=== PATIENT | male | born 1965 | race Hispanic/Latino ===

== ENCOUNTER 2018-07-17 11:27 | Emergency (ER) | payer OTHER | END 2018-07-17 14:03 | disposition home or self-care (01) | LOC: EDH 11:27 | DX: S39.012A Strain of muscle, fascia and tendon of lower back, initial encounter (principal); X50.9XXA Other and unspecified overexertion or strenuous movements or postures, initial encounter; Y93.89 Activity, other specified; Y92.69 Other specified industrial and construction area as the place of occurrence of the external cause; Y99.8 Other external cause status | CPT/HCPCS: 72100 ==

== ENCOUNTER 2019-05-03 16:17 | Emergency (ER) | payer OTHER ==
[2019-05-03] MEDS ORDERED: SODIUM CHLORIDE 0.9% 1000ML 1,000 ML IV ONE (16:49)
[2019-05-03] MEDS ORDERED: ONDANSETRON HCL 4 MG/2 ML VIAL ONE (16:50)
[2019-05-03 16:51] LABS: BASOPHILS % (AUTO) 0.2 % (0.0-5.0); EOSINOPHILS % (AUTO) 0.4 % (0.0-8.0); HEMATOCRIT 44.6 % (42-54); LYMPHOCYTES % (AUTO) 35.2 % (21.0-51.0); MEAN CORPUSCULAR HEMOGLOBIN 32.5 pg (27.0-33.0); MEAN CORPUSCULAR HGB CONC 34.5 g/dL (32.0-36.0); MEAN CORPUSCULAR VOLUME 94.3 fL (79-99); MONOCYTES % (AUTO) 7.5 % (3.0-13.0); NEUTROPHILS % (AUTO) 56.7 % (40.0-77.0); PLATELET COUNT (AUTO) 233 K/uL (130-400); RED BLOOD CELL COUNT(AUTO) 4.73 MIL/uL (4.50-6.20); RED CELL DISTRIBUTION WIDTH 12.7 % (11.0-15.5); WHITE BLOOD COUNT (AUTO) 7.8 K/uL (4.8-10.8)
[2019-05-03 17:01] LABS: CREATININE 0.9 mg/dL (0.5-1.5); POTASSIUM 3.6 mmol/L (3.5-5.1)
[2019-05-03 17:05] LABS: ALBUMIN 3.6 g/dL (3.5-5.0); BILIRUBIN,DIRECT 0.1 mg/dL (0.0-0.3); BILIRUBIN,TOTAL 0.5 mg/dL (0.2-1.0); TOTAL PROTEIN, SERUM 7.7 g/dL (6.0-8.3)
[2019-05-03 17:52] LABS: APPEARANCE,URINE Cloudy (CLEAR); BILIRUBIN,URINE Negative (NEGATIVE); COLOR,URINE Yellow (YELLOW); GLUCOSE, URINE (UA) Negative (NEGATIVE); KETONES,URINE Negative (NEGATIVE); LEUKOCYTE ESTERASE ,URINE Trace (NEGATIVE); NITRATE,URINE Negative (NEGATIVE); OCCULT BLOOD,URINE Negative (NEGATIVE); PH,URINE 7.5 (5.0-8.0); PROTEIN,URINE Negative (NEGATIVE)
[2019-05-03 18:00] LABS: AMPHET/METH SCREEN,URINE NEGATIVE (NEGATIVE); BARBITURATE SCREEN, URINE NEGATIVE (NEGATIVE); BENZODIAZEPINES SCREEN,URINE NEGATIVE (NEGATIVE); CANNABINOID SCREEN,URINE NEGATIVE (NEGATIVE); COCAINE SCREEN,URINE NEGATIVE (NEGATIVE); OPIATE SCREEN,URINE NEGATIVE (NEGATIVE); PHENCYCLIDINE SCREEN,URINE NEGATIVE (NEGATIVE)
[2019-05-03 18:09] LABS: BACTERIA,URINE Few /HPF (None Seen); RBC,URINE 0-1 /HPF (0-1); SQUAMOUS EPITHELIAL CELL,UR Rare /HPF (0-2); WBC,URINE 0-1 /HPF (0-1)
== END 2019-05-03 18:55 | disposition home or self-care (01) ==
LOC: EDH 16:17
DX: K92.2 Gastrointestinal hemorrhage, unspecified (principal); Z87.891 Personal history of nicotine dependence
CPT/HCPCS: 36415; 80048; 80076; 80305; 81001; 83690; 85025; 96374; 99284; J2405; J7030

== ENCOUNTER 2020-12-01 16:45 | Emergency (ER) | payer OTHER ==
[2020-12-01] MEDS ORDERED: SODIUM CHLORIDE 0.9% 1000ML 1,000 ML IV ONE (17:19)
[2020-12-01 17:31] LABS: BASOPHILS % (AUTO) 0.2 % (0.0-5.0); HEMATOCRIT 46.5 % (42-54); LYMPHOCYTES % (AUTO) 25.9 % (21.0-51.0); MEAN CORPUSCULAR HEMOGLOBIN 31.8 pg (27.0-33.0); MEAN CORPUSCULAR HGB CONC 34.6 g/dL (32.0-36.0); MEAN CORPUSCULAR VOLUME 91.9 fL (79-99); NEUTROPHILS % (AUTO) 67.8 % (40.0-77.0); PLATELET COUNT (AUTO) 265 K/uL (130-400); RED BLOOD CELL COUNT(AUTO) 5.06 MIL/uL (4.50-6.20); RED CELL DISTRIBUTION WIDTH 12.2 % (11.0-15.5); WHITE BLOOD COUNT (AUTO) 8.6 K/uL (4.8-10.8)
[2020-12-01 17:35] LABS: APPEARANCE,URINE Clear (CLEAR); BILIRUBIN,URINE Negative (NEGATIVE); COLOR,URINE Yellow (YELLOW); GLUCOSE, URINE (UA) Negative (NEGATIVE); KETONES,URINE Trace mg/dL (NEGATIVE); LEUKOCYTE ESTERASE ,URINE Negative (NEGATIVE); NITRATE,URINE Negative (NEGATIVE); OCCULT BLOOD,URINE Negative (NEGATIVE); PROTEIN,URINE Negative (NEGATIVE); UROBILINOGEN,URINE 0.2 mg/dL (0.2-1.0)
[2020-12-01 17:48] LABS: CREATININE 1.6 mg/dL (0.5-1.5); INR 0.99 (0.85-1.15); POTASSIUM 3.4 mmol/L (3.5-5.1); PROTHROMBIN TIME 10.8 SEC (9.6-11.6)
[2020-12-01 17:49] LABS: PARTIAL THROMBOPLASTIN TIME 28.5 SEC (26.3-35.5)
[2020-12-01 17:52] LABS: BILIRUBIN,TOTAL 0.6 mg/dL (0.2-1.0); CRP QUANTITATIVE 3.8 mg/L (0.00-9.0); TOTAL PROTEIN, SERUM 8.5 g/dL (6.0-8.3)
== END 2020-12-01 20:26 | disposition home or self-care (01) ==
LOC: EDH 16:45
DX: R00.2 Palpitations (principal); G47.00 Insomnia, unspecified; R20.2 Paresthesia of skin; R07.89 Other chest pain
CPT/HCPCS: 36415; 70450; 71045; 80053; 81003; 82550; 83605; 83690; 84484; 85025; 85610; 85651; 85730; 86140; 93005; 96360; 99285; J7030

== ENCOUNTER 2021-08-12 19:37 | Inpatient (IN) | payer BC, OTHER ==
[~2021-08-12] VITALS: Ht 170.2 cm; Wt 70.3 kg
[2021-08-12 20:41] LABS: BASOPHILS % (AUTO) 0.2 % (0.0-5.0); EOSINOPHILS % (AUTO) 0.1 % (0.0-8.0); HEMATOCRIT 43.8 % (42-54); LYMPHOCYTES % (AUTO) 14.3 % (21.0-51.0); MEAN CORPUSCULAR HEMOGLOBIN 32.4 pg (27.0-33.0); MEAN CORPUSCULAR HGB CONC 34.5 g/dL (32.0-36.0); MONOCYTES % (AUTO) 8.3 % (3.0-13.0); NEUTROPHILS % (AUTO) 76.8 % (40.0-77.0); PLATELET COUNT (AUTO) 252 K/uL (130-400); RED BLOOD CELL COUNT(AUTO) 4.66 MIL/uL (4.50-6.20); RED CELL DISTRIBUTION WIDTH 11.7 % (11.0-15.5); WHITE BLOOD COUNT (AUTO) 16.2 K/uL (4.8-10.8)
[2021-08-12] MEDS: CLINDAMYCIN IVPB 900MG/50ML 50 ML IV SCH (20:42)
[2021-08-12 20:52] LABS: CREATININE 1.2 mg/dL (0.5-1.5); POTASSIUM 3.6 mmol/L (3.5-5.1)
[2021-08-12 20:57] LABS: ALBUMIN 3.5 g/dL (3.5-5.0); BILIRUBIN,TOTAL 0.6 mg/dL (0.2-1.0); TOTAL PROTEIN, SERUM 8.1 g/dL (6.0-8.3)
[2021-08-12] MEDS ORDERED: MORPHINE 4 MG SYG IV ONE (21:30)
[2021-08-12] MEDS ORDERED: ONDANSETRON 4MG INJ IVP ONE (21:30)
[2021-08-12] MEDS ORDERED: IOHEXOL-350 75 ML VIAL IV ONE (21:39)
[2021-08-12 21:42] LABS: APPEARANCE,URINE Clear (CLEAR); BILIRUBIN,URINE Negative (NEGATIVE); COLOR,URINE Yellow (YELLOW); GLUCOSE, URINE (UA) Negative (NEGATIVE); KETONES,URINE Negative (NEGATIVE); LEUKOCYTE ESTERASE ,URINE Negative (NEGATIVE); NITRATE,URINE Negative (NEGATIVE); OCCULT BLOOD,URINE Negative (NEGATIVE); PH,URINE 6.5 (5.0-8.0); PROTEIN,URINE Negative (NEGATIVE)
[2021-08-12] MEDS ORDERED: MORPHINE 2 MG SYG IV PRN (22:30)
[2021-08-12] MEDS ORDERED: MORPHINE 4 MG SYG IV PRN (22:30)
[2021-08-12] MEDS ORDERED: VANCOMYCIN 1G/250ML KIT 250 ML IV ONE (22:30)
[2021-08-12] MEDS ORDERED: ACETAMINOPHEN 325 MG TAB PO PRN (22:30)
[2021-08-12] MEDS ORDERED: VANCOMYCIN PROTOCOL PER PHARMACY IV PRN (22:30)
[2021-08-12] MEDS ORDERED: ONDANSETRON 4MG INJ IV PRN (22:30)
[2021-08-12] MEDS: LACTATED RINGERS 1000ML 1,000 ML IV SCH (23:53)
[2021-08-13] MEDS: CLINDAMYCIN IVPB 900MG/50ML 50 ML IV SCH ×2 (04:48→14:45)
[2021-08-13 05:20] LABS: BASOPHILS % (AUTO) 0.1 % (0.0-5.0); EOSINOPHILS % (AUTO) 0.1 % (0.0-8.0); LYMPHOCYTES % (AUTO) 16.8 % (21.0-51.0); MEAN CORPUSCULAR HEMOGLOBIN 31.7 pg (27.0-33.0); MEAN CORPUSCULAR HGB CONC 33.9 g/dL (32.0-36.0); MEAN CORPUSCULAR VOLUME 93.4 fL (79-99); NEUTROPHILS % (AUTO) 73.6 % (40.0-77.0); PLATELET COUNT (AUTO) 237 K/uL (130-400); RED BLOOD CELL COUNT(AUTO) 4.39 MIL/uL (4.50-6.20); RED CELL DISTRIBUTION WIDTH 11.6 % (11.0-15.5); WHITE BLOOD COUNT (AUTO) 15.1 K/uL (4.8-10.8)
[2021-08-13] MEDS: ZOSYN 3.375GM+NS 50ML 50 ML IV SCH ×3 (05:30→21:44)
[2021-08-13 05:35] LABS: CREATININE 0.8 mg/dL (0.5-1.5); MAGNESIUM 2.1 mg/dL (1.80-2.40); PHOSPHORUS 3.6 mg/dL (2.5-4.9); POTASSIUM 3.7 mmol/L (3.5-5.1)
[2021-08-13 05:38] LABS: INR 1.05 (0.85-1.15); PROTHROMBIN TIME 11.4 SEC (9.6-11.6)
[2021-08-13 05:39] LABS: PARTIAL THROMBOPLASTIN TIME 34.6 SEC (26.3-35.5)
[2021-08-13] MEDS: LACTATED RINGERS 1000ML 1,000 ML IV SCH ×2 (09:21→18:41)
[2021-08-13] MEDS: VANCOMYCIN 1G/250ML KIT 250 ML IV SCH ×2 (09:21→21:45)
[2021-08-13] MEDS: FAMOTIDINE 20MG VIAL IV SCH ×2 (09:21→21:44)
[2021-08-13 12:05] VITALS: BP 129/68
[2021-08-13 15:30] VITALS: BP 101/60
[2021-08-13 19:00] VITALS: BP 105/64
[2021-08-13 20:00] VITALS: BP 105/64
[2021-08-13] MEDS ORDERED: 0.9% NACL 250ML 250 ML ONE (21:37)
[2021-08-13 23:54] VITALS: BP 101/61
[2021-08-14] VITALS (17 sets, daily range): BP systolic 93–119; BP diastolic 58–74
[2021-08-14] MEDS: LACTATED RINGERS 1000ML 1,000 ML IV SCH ×2 (03:44→09:32)
[2021-08-14 04:56] LABS: BASOPHILS % (AUTO) 0.2 % (0.0-5.0); EOSINOPHILS % (AUTO) 0.3 % (0.0-8.0); HEMATOCRIT 42.1 % (42-54); LYMPHOCYTES % (AUTO) 19.7 % (21.0-51.0); MEAN CORPUSCULAR HEMOGLOBIN 31.5 pg (27.0-33.0); MEAN CORPUSCULAR HGB CONC 32.8 g/dL (32.0-36.0); MEAN CORPUSCULAR VOLUME 96.1 fL (79-99); MONOCYTES % (AUTO) 9.2 % (3.0-13.0); NEUTROPHILS % (AUTO) 70.1 % (40.0-77.0); PLATELET COUNT (AUTO) 245 K/uL (130-400); RED BLOOD CELL COUNT(AUTO) 4.38 MIL/uL (4.50-6.20); RED CELL DISTRIBUTION WIDTH 11.6 % (11.0-15.5); WHITE BLOOD COUNT (AUTO) 13.3 K/uL (4.8-10.8)
[2021-08-14 05:22] LABS: ALBUMIN 2.9 g/dL (3.5-5.0); BILIRUBIN,TOTAL 0.8 mg/dL (0.2-1.0); CREATININE 0.8 mg/dL (0.5-1.5); POTASSIUM 4.3 mmol/L (3.5-5.1); TOTAL PROTEIN, SERUM 6.6 g/dL (6.0-8.3); URIC ACID 2.5 mg/dL (2.6-7.2)
[2021-08-14 05:26] LABS: HEMOGLOBIN A1C 5.4 % (4.0-6.0)
[2021-08-14] MEDS: ZOSYN 3.375GM+NS 50ML 50 ML IV SCH ×2 (06:15→14:18)
[2021-08-14] MEDS ORDERED: CEFAZOLIN SODIUM 1 GM VIAL ONE (07:53)
[2021-08-14] MEDS ORDERED: BUPIVACAINE/PF 0.25% 30ML VIAL IJ ONE (07:54)
[2021-08-14] MEDS ORDERED: SUCCINYLCHOLINE CHLORIDE 20 MG/ML 10 ML VIAL ONE (08:29)
[2021-08-14] MEDS ORDERED: LIDOCAINE PF 100MG/5ML (2%) SYRINGE 5ML ONE (08:29)
[2021-08-14] MEDS ORDERED: MIDAZOLAM HCL 1 MG/ML 2ML VIAL ONE (08:29)
[2021-08-14] MEDS ORDERED: PROPOFOL 10 MG/ML 20ML VIAL IV ONE (08:30)
[2021-08-14] MEDS ORDERED: ROCURONIUM 10MG/1ML SYR 10 MG/ML ML ONE (08:30)
[2021-08-14] MEDS ORDERED: FENTANYL CITRATE PF 50 MCG/1 ML 2ML VIAL ONE (08:31)
[2021-08-14] MEDS ORDERED: LIDOCAINE 1%-EPI 1:100,000 20 ML VIAL IJ ONE (09:01)
[2021-08-14] MEDS ORDERED: GLYCOPYRROLATE 1 MG/5 ML SYRINGE ONE (09:12)
[2021-08-14] MEDS ORDERED: NEOSTIGMINE 5MG/5ML SYR IV ONE (09:13)
[2021-08-14] MEDS: VANCOMYCIN 1G/250ML KIT 250 ML IV SCH ×2 (11:25→21:37)
[2021-08-14] MEDS: FAMOTIDINE 20MG VIAL IV SCH ×2 (11:25→21:37)
[2021-08-14] MEDS ORDERED: 0.9% NACL 250ML 250 ML ONE (21:31)
[2021-08-15] VITALS: BP 98/47
[2021-08-15] MEDS: ZOSYN 3.375GM+NS 50ML 50 ML IV SCH ×4 (00:04→20:23)
[2021-08-15] MEDS: LACTATED RINGERS 1000ML 1,000 ML IV SCH ×3 (01:33→20:55)
[2021-08-15 04:00] VITALS: BP 94/52
[2021-08-15] MEDS ORDERED: 0.9% NACL 250ML 250 ML ONE (05:11)
[2021-08-15] MEDS: VANCOMYCIN 1G/250ML KIT 250 ML IV SCH ×3 (05:17→20:55)
[2021-08-15 05:33] LABS: ALBUMIN 2.4 g/dL (3.5-5.0); BILIRUBIN,TOTAL 0.6 mg/dL (0.2-1.0); CREATININE 0.7 mg/dL (0.5-1.5); POTASSIUM 3.7 mmol/L (3.5-5.1); TOTAL PROTEIN, SERUM 6.8 g/dL (6.0-8.3)
[2021-08-15] MEDS: FAMOTIDINE 20MG VIAL IV SCH ×2 (08:51→20:23)
[2021-08-15 09:35] VITALS: BP 102/74
[2021-08-15 12:00] VITALS: BP 128/82
[2021-08-15 18:55] VITALS: BP 119/81
[2021-08-15 20:00] VITALS: BP 118/71
[2021-08-16] VITALS: BP 112/67
[2021-08-16 04:00] VITALS: BP 110/65
[2021-08-16] MEDS: ZOSYN 3.375GM+NS 50ML 50 ML IV SCH ×3 (04:25→20:09)
[2021-08-16] MEDS: VANCOMYCIN 1G/250ML KIT 250 ML IV SCH ×3 (04:25→20:09)
[2021-08-16] MEDS: LACTATED RINGERS 1000ML 1,000 ML IV SCH ×2 (04:27→16:31)
[2021-08-16 05:18] LABS: BASOPHILS % (AUTO) 0.3 % (0.0-5.0); EOSINOPHILS % (AUTO) 1.1 % (0.0-8.0); HEMATOCRIT 39.2 % (42-54); MEAN CORPUSCULAR HEMOGLOBIN 31.8 pg (27.0-33.0); MEAN CORPUSCULAR HGB CONC 34.2 g/dL (32.0-36.0); MEAN CORPUSCULAR VOLUME 93.1 fL (79-99); MONOCYTES % (AUTO) 9.2 % (3.0-13.0); NEUTROPHILS % (AUTO) 61.2 % (40.0-77.0); PLATELET COUNT (AUTO) 288 K/uL (130-400); RED BLOOD CELL COUNT(AUTO) 4.21 MIL/uL (4.50-6.20); RED CELL DISTRIBUTION WIDTH 11.5 % (11.0-15.5)
[2021-08-16 05:42] LABS: ALBUMIN 2.6 g/dL (3.5-5.0); BILIRUBIN,TOTAL 0.4 mg/dL (0.2-1.0); CREATININE 0.7 mg/dL (0.5-1.5); POTASSIUM 3.7 mmol/L (3.5-5.1); TOTAL PROTEIN, SERUM 6.7 g/dL (6.0-8.3)
[2021-08-16 09:08] VITALS: BP 112/71
[2021-08-16] MEDS: FAMOTIDINE 20MG VIAL IV SCH ×2 (09:16→20:09)
[2021-08-16 11:16] VITALS: BP 114/74
[2021-08-16 16:38] VITALS: BP 126/81
[2021-08-16 20:00] VITALS: BP 109/69
[2021-08-16] MEDS ORDERED: KETOROLAC 30MG VIAL (30MG/ML) IM PRN (22:00)
[2021-08-16] MEDS ORDERED: ACETAMINOPHEN WITH CODEINE 1 TAB TAB PO PRN ×2 (22:00)
[2021-08-17] VITALS: BP 92/63
[2021-08-17 04:00] VITALS: BP 89/50
[2021-08-17 04:46] LABS: BASOPHILS % (AUTO) 0.4 % (0.0-5.0); EOSINOPHILS % (AUTO) 1.5 % (0.0-8.0); HEMATOCRIT 39.2 % (42-54); LYMPHOCYTES % (AUTO) 27.3 % (21.0-51.0); MEAN CORPUSCULAR HGB CONC 33.4 g/dL (32.0-36.0); MEAN CORPUSCULAR VOLUME 95.6 fL (79-99); MONOCYTES % (AUTO) 8.9 % (3.0-13.0); NEUTROPHILS % (AUTO) 61.5 % (40.0-77.0); PLATELET COUNT (AUTO) 295 K/uL (130-400); RED CELL DISTRIBUTION WIDTH 11.5 % (11.0-15.5); WHITE BLOOD COUNT (AUTO) 8.4 K/uL (4.8-10.8)
[2021-08-17 05:01] LABS: CREATININE 0.8 mg/dL (0.5-1.5); CRP QUANTITATIVE 42.9 mg/L (0.00-9.0); POTASSIUM 3.7 mmol/L (3.5-5.1)
[2021-08-17 05:55] LABS: ERYTHROCYTE SEDIMENTATION RATE 63 MM/HR (0-20)
[2021-08-17] MEDS ORDERED: SULF1TAB42 PO (07:22)
[2021-08-17 08:00] VITALS: BP 121/80
[2021-08-17] MEDS ORDERED: SULFAMETHOX-TMP DS 800/160 TAB PO SCH (09:00)
[2021-08-17] MEDS: FAMOTIDINE 20MG VIAL IV SCH (10:03)
[2021-08-17 12:00] VITALS: BP 123/73
== END 2021-08-17 13:50 | disposition home or self-care (01) | DRG 872 ==
LOC: EDH 19:37 → EDHIP 19:38 → 3BH 08-13 12:16
PROVIDERS: ADMIT Internal Medicine; ATTEND Internal Medicine
PROC: 0J9L0ZZ Drainage of Right Upper Leg Subcutaneous Tissue and Fascia, Open Approach (ICD-10-PCS; 2021-08-14)
PROC: 0J9H0ZZ Drainage of Left Lower Arm Subcutaneous Tissue and Fascia, Open Approach (ICD-10-PCS; principal; 2021-08-14 09:01)
DX: A41.9 Sepsis, unspecified organism (principal); L02.415 Cutaneous abscess of right lower limb; L02.414 Cutaneous abscess of left upper limb; L03.114 Cellulitis of left upper limb; L03.115 Cellulitis of right lower limb; Z20.822 Contact with and (suspected) exposure to COVID-19
CPT/HCPCS: 36415; 73070; 73701; 76882; 80048; 80053; 80202; 81003; 82550; 83036; 83605; 83735; 84100; 84145; 84484; 84550; 85025; 85610; 85651; 85730; 86140; 86850; 86900; 86901; 87040; 87070; 87076; 87077; 87088; 87186; 87205; 87635; 93005; C9803; G0378; J0330; J0690; J2001; J2250; J2270; J2405; J2543; J2704; J2710; J3010; J3370; J3490; J7050; J7120; Q9967

== ENCOUNTER 2024-01-19 16:31 | Emergency (ER) | payer OTHER ==
[~2024-01-19] VITALS: Ht 172.7 cm; Wt 81.6 kg
[~2024-01-19 16:31] MED LIST: SULF1TAB42 PO
[2024-01-19 17:36] LABS: BASOPHILS # (AUTO) 0.02 K/uL (0.00-0.20); BASOPHILS % (AUTO) 0.3 % (0.0-5.0); EOSINOPHILS # (AUTO) 0.02 K/uL (0.00-0.70); EOSINOPHILS % (AUTO) 0.3 % (0.0-8.0); HEMATOCRIT 45.9 % (42-54); IMMATURE GRANULOCYTE ABSOLUTE 0.02 K/uL (0-1); LYMPHOCYTES # (AUTO) 1.9 K/uL (1.0-4.8); LYMPHOCYTES % (AUTO) 23.7 % (21.0-51.0); MEAN CORPUSCULAR HGB CONC 34.4 g/dL (32.0-36.0); MEAN CORPUSCULAR VOLUME 92.9 fL (79-99); MONOCYTES # (AUTO) 0.6 K/uL (0.1-1.0); MONOCYTES % (AUTO) 7.3 % (3.0-13.0); NEUTROPHILS # (AUTO) 5.4 K/uL (1.8-7.7); NEUTROPHILS % (AUTO) 68.1 % (40.0-77.0); PLATELET COUNT (AUTO) 258 K/uL (130-400); RED BLOOD CELL COUNT(AUTO) 4.94 MIL/uL (4.50-6.20); WHITE BLOOD COUNT (AUTO) 7.9 K/uL (4.8-10.8)
[2024-01-19 17:54] LABS: INR <= 0.93 (0.85-1.15)
[2024-01-19 17:56] LABS: PARTIAL THROMBOPLASTIN TIME 32.2 SEC (26.3-35.5)
[2024-01-19] MEDS: ACETAMINOPHEN 500 MG TABLET PO ONE (18:00)
[2024-01-19 18:05] LABS: CREATININE 0.8 mg/dL (0.5-1.3); POTASSIUM 4.2 mmol/L (3.5-5.1)
[2024-01-19] MEDS ORDERED: BUTA-271 PO (18:12)
[2024-01-19 19:23] VITALS: BP 120/76; PULSE 95; RESP 17; O2SAT 99
== END 2024-01-19 19:24 | disposition home or self-care (01) ==
LOC: EDH 16:31
DX: G44.209 Tension-type headache, unspecified, not intractable (principal)
CPT/HCPCS: 36415; 80048; 85025; 85610; 85730

== ENCOUNTER 2025-02-25 10:09 | Emergency (ER) | payer SELFPAY ==
[~2025-02-25] VITALS: Ht 152.4 cm; Wt 81.6 kg
[~2025-02-25 10:09] MED LIST changes: +BUTA-271 PO
--- NOTE | 2025-02-25 10:23 | ERN ---
General Chief Complaint: Abscess Stated Complaint: ABSCESS TO LT KNEE Time Seen by MD: 10:10 Source: patient History of Present Illness Initial Comments PATIENT IS A 59-YEAR-OLD MALE COMING IN DUE TO KNEE DISCOMFORT. PATIENT STATES THAT HE SAW WHAT HE BELIEVES WAS A BOIL IN HIS LEFT KNEE STATES HE PROCEEDED TO EVERETTE IT AND COMPRESSIVE. HE STATES HE NOTICED THE SWELLING LESS TODAY AFTER HE PERFORMED THAT. NO FEVER OR CHILLS. Allergies: Coded Allergies: No Known Allergies (Unverified Allergy, Unknown, 05/03/19) Home Meds Active Scripts Butalb/Acetaminophen/Caffeine (Esgic 50-325-40 mg Tablet) 50 Mg-325 Mg-40 Mg Tablet, 1 EACH PO AD for HEADACHE, #20 TAB 2 tablets by mouth every 4 hours as needed for headache, maximum 6 tablets in 24 hours. Prov:MODESTO STOUT SELF CONTAINED BEHAVIOR UNIT TEACHER 01/19/24 Sulfamethoxazole/Trimethoprim (Bactrim Ds Tablet) 1 Each Tablet, 1 TAB PO BID for 10 Days, #20 TAB Prov:ALIX BERRY FUEL MANAGEMENT HANDLER 08/17/21 Past Medical History Past Medical History: No Pertinent History Medical History Other: NOSE BLEEDS A CHILD Past Surgical History: Other Surgical History Other: RT HIP ABSCESS REMOVAL ROS Dictation CONSTITUTIONAL: NO CHILLS, NO FEVER, NO WEAKNESS, NO DIAPHORESIS, NO MALAISE. HEAD/FACE: NO SIGNS OF TRAUMA. EENT: NO EYE PAIN, NO BLURRED VISION, NO TEARING, NO DOUBLE VISION, NO EAR PAIN, NO EAR DISCHARGE, NO NOSE PAIN, NO NASAL CONGESTION, NO THROAT PAIN, NO THROAT SWELLING, NO MOUTH PAIN. RESPIRATORY: NO COUGH, NO ORTHOPNEA, NO SOB, NO STRIDOR, NO WHEEZING. CARDIOVASCULAR: NO CHEST PAIN, NO EDEMA, NO PALPITATIONS, NO SYNCOPE. GASTROINTESTINAL/ABDOMINAL: NO ABDOMINAL PAIN, NO CONSTIPATION, NO DIARRHEA, NO NAUSEA, NO VOMITING. GENITOURINARY: NO ABNORMAL DISCHARGE, NO DYSURIA, NO FREQUENT URINATION, NO HEMATURIA. NO COMPLAINTS OF PAIN IN THE GENITALS. MUSCULOSKELETAL: NO BACK PAIN, NO GOUT, NO JOINT PAIN, NO JOINT SWELLING, NO MUSCLE PAIN, NO MUSCLE STIFFNESS, NO NECK PAIN. INTEGUMENTARY: NO CHANGE IN COLOR, NO CHANGE IN HAIR/NAILS, NO DRYNESS, NO LESION, NO LUMPS, NO RASH. NEUROLOGICAL/PSYCH: NO ANXIETY, NOT DEPRESSED, NO EMOTIONAL PROBLEM, NO HEAD ACHE, NO NUMBNESS, NO PRE-EXISTING DEFICIT, NO HISTORY OF SEIZURES, NO TREMORS, NO WEAKNESS. HEMATOLOGIC/LYMPHATIC: NOT ANEMIC, NO HISTORY OF BLOOD CLOTS, NO APPARENT BLEEDING, NO BRUISING, GLANDS NOT SWOLLEN. ALL SYSTEMS NEGATIVE, EXCEPT NOTED. Physical Exam Physical Exam Dictation VITAL SIGNS: REVIEWED. GENERAL APPEARANCE: ALERT, ORIENTED X3, NO ACUTE DISTRESS, OBESE. HEAD AND FACE: NON-TRAUMATIC. EYES: PERRL, PINK CONJUNCTIVAS, EYELID NO TRAUMA, ANTERIOR CHAMBER CLEAR. EARS: PINNAS INTACT AND NO SIGNS OF TRAUMA OR ERYTHEMA. EAR CANALS CLEAR AND NO DISCHARGE. TMS NO ERYTHEMA. NOSE: NO DISCHARGE, NO BLEEDING. OROPHARYNX: MOUTH NORMAL, TEETH NO CARIES, TONGUE PINK. PHARYNX CLEAR, NO ERYTHEMA. TONSILS NO EXUDATES, NO ABSCESSES NOTED. MUCOUS MEMBRANE MOIST. NECK: SUPPLE, NON-TENDER, NO THYROMEGALY, NO MASSES, NO JVD, NO BRUITS. BREAST: DEFERRED. CHEST: NO TENDERNESS, NO CREPITUS, NO PARADOXICAL MOVEMENT, NO RETRACTIONS. LUNGS: CLEAR, WELL-VENTILATED, SYMMETRIC, NO RALES, NO WHEEZING, NO RHONCHI, NO STRIDOR, GOOD BREATH SOUNDS BILATERALLY. HEART: REGULAR RATE, REGULAR RHYTHM, NO MURMUR, NO GALLOPS. VASCULAR: NO PERIPHERAL EDEMA. ABDOMEN: SOFT, POSITIVE BOWEL SOUNDS, NONDISTENDED, NO GUARDING, NONTENDER, NO REBOUND, NO MASSES NO HEPATOMEGALY, NO SPLENOMEGALY, NO MTZ'S SIGN, NO HERNIAS. RECTAL: DEFERRED. GENITAL: DEFERRED. NEUROLOGICAL: NORMAL SPEECH, GROSS MOTOR FUNCTION INTACT, GROSS SENSORY FUNCTION INTACT. MUSCULOSKELETAL: NECK NONTENDER, FULL RANGE OF MOTION, BACK NONTENDER, FULL RANGE OF MOTION. EXTREMITIES: NONTENDER, FULL RANGE OF MOTION. SKIN: COLOR PINK, DRY, NO TURGOR, NO RASH, NO LACERATIONS, LEFT KNEE ABRASIONS/ ERYTHEMA, NO CONTUSIONS. LYMPHATICS: DEFERRED. Results Laboratory and Microbiology Lab and Micro Result Laboratory Tests Test 02/25/25 10:21 02/25/25 10:41 Whole Blood Glucose 122 MG/DL (70-110) H Bedside Glucose Comment Notified Nurse White Blood Count 10.5 K/uL (4.8-10.8) Red Blood Count 4.97 MIL/uL (4.50-6.20) Hemoglobin 15.9 g/dL (14.0-18.0) Hematocrit 47.8 % (42-54) Mean Corpuscular Volume 96.2 fL (79-99) Mean Corpuscular Hemoglobin 32.0 pg (27.0-33.0) Mean Corpuscular Hemoglobin Concent 33.3 g/dL (32.0-36.0) Red Cell Distribution Width 12.3 % (11.0-15.5) Platelet Count 237 K/uL (130-400) Mean Platelet Volume 9.3 fL (7.5-10.5) Immature Granulocyte % (Auto) 0.4 % (0-1) Neutrophils (%) (Auto) 67.2 % (40.0-77.0) Lymphocytes (%) (Auto) 25.0 % (21.0-51.0) Monocytes (%) (Auto) 6.9 % (3.0-13.0) Eosinophils (%) (Auto) 0.2 % (0.0-8.0) Basophils (%) (Auto) 0.3 % (0.0-5.0) Neutrophils # (Auto) 7.1 K/uL (1.8-7.7) Lymphocytes # (Auto) 2.6 K/uL (1.0-4.8) Monocytes # (Auto) 0.7 K/uL (0.1-1.0) Eosinophils # (Auto) 0.02 K/uL (0.00-0.70) Basophils # (Auto) 0.03 K/uL (0.00-0.20) Absolute Immature Granulocyte (auto 0.04 K/uL (0-1) Nucleated Red Blood Cells 0.0 % (0.0-0.19) Sodium Level 140 mmol/L (136-145) Potassium Level 4.0 mmol/L (3.5-5.1) Chloride Level 103 mmol/L (101-111) Carbon Dioxide Level 28 mmol/L (21-32) Blood Urea Nitrogen 15 mg/dL (7-18) Creatinine 0.8 mg/dL (0.5-1.3) Glomerular Filtration Rate Calc 103 mL/min (>90) Random Glucose 117 mg/dL (70-105) H Total Calcium 8.9 mg/dL (8.5-10.1) EKG/XRAY/US/CT/MRI Ultrasound Comment [facility] [address] [place], [place] [id number] IMAGING REPORT Signed PATIENT: JULIET TRINIDAD MR#: [id number] : 01/15/1966 SEX: M AGE: 59 LOCATION: [facility] ORDER 1018 STATUS: REG ER REPORT#: [id number] SERVICE 1014 REASON: LEFT KNEE ABSCESS ORDERING PHYSICIAN: VANI ARCHIBALD MD PROCEDURE: EXT NV LTD - US EXTREMITY NONVASCULAR LMTD Exam Type: US EXTREMITY NONVASCULAR LMTD Clinical Information: LEFT KNEE ABSCESS Comparison: None Findings and impression: No abscess is noted throughout the area of concern. There is evidence of subcutaneous edema. DICTATED BY: ANT GUTIERREZ MD DATE: 02/25/25 1047 ELECTRONICALLY SIGNED BY: ANT GUTIERREZ MD DATE: 02/25/25 1050 MDM MDM: DIFFERENTIAL DIAGNOSIS: LEG CELLULITIS, LEFT LEG ABSCESS, RATIONALE: TESTS CONSIDERED AND ORDERED SECONDARY TO SHARED DECISION MAKING INCLUDE: PREVIOUS OUTSIDE RECORDS REVIEWED: OLD ER VISITS. RISK OF COMPLICATION AND/OR MORBIDITY OR MORTALITY OF PATIENT MANAGEMENT: NONE PATIENT IS A 59-YEAR-OLD MALE COMING IN TO BE EVALUATED FOR KNEE DISCOMFORT. PATIENT STATES THAT HE BELIEVES THAT HE MIGHT HAVE AN ABSCESS THERE ULTRASOUND DID NOT CONFIRM IT WHITE BLOOD CELL COUNT WITHIN NORMAL LIMITS. PATIENT WILL BE DISCHARGED IN STABLE CONDITION WITH A DIAGNOSIS OF CELLULITIS OF THE LEFT KNEE. ED Course Orders Procedure Category Date Status Time Tetanus,Diphtheria PHA 02/25/25 Complete Tox [Adult] (Diphther 10:30 Us Extremity US 02/25/25 Resulted Nonvascular Lmtd 10:14 Cbc With Differential LAB 02/25/25 Complete 10:14 Basic Metabolic Panel LAB 02/25/25 Complete 10:14 Current Medications Medications (Trade) Dose Ordered Sig/Daniel Route PRN Reason Start Time Stop Time Status Last Admin Dose Admin Tetanus/ Diphtheria Toxoids Adsorbed (DiphthERIA-teTANUS TOXOID [ADULT]/ DECAVAC) 0.5 ml ONCE ONCE IM 02/25/25 10:30 02/25/25 10:31 DC Vital Signs Date Time Temp Pulse Resp B/P (MAP) Pulse Ox O2 Delivery O2 Flow Rate FiO2 02/25/25 10:10 97.9 103 16 133/87 98 Room Air 0 DX & DISP Disposition: Discharge Departure Impression: Primary Impression: Cellulitis of left leg Condition: Stable Scripts Cephalexin Monohydrate (Keflex) 500 Mg Cap 1 CAP PO TID for 10 Days, #30 CAP 0 Refills Prov: VANI ARCHIBALD MD 02/25/25 Additional Instructions: FOLLOW-UP WITH PRIMARY CARE PROVIDER IN 1 TO 2 DAYS. TAKE MEDICATIONS DIRECTED HERE IN THE EMERGENCY ROOM. OKAY TO CONTINUE HOME MEDICATIONS UNLESS OTHERWISE DISCUSSED DURING YOUR VISIT IN THE EMERGENCY ROOM TODAY. RETURN TO YOUR NEAREST EMERGENCY ROOM IF SYMPTOMS WORSEN OR IF THERE IS NO IMPROVEMENT. CALL 911 IF YOU NEED IMMEDIATE ASSISTANCE. TAKE TYLENOL [id number] NEEDED AND IF NO CONTRAINDICATIONS ARE PRESENT. INCREASE ORAL HYDRATION. A WOUND CULTURE OR URINE CULTURE WAS ORDERED HERE IN THE EMERGENCY ROOM DEPARTMENT PLEASE FOLLOW-UP WITH PRIMARY CARE PROVIDER AND ADVISE THEM TO GET REPEAT PORTS FROM OUR FACILITY. IF YOU HAD ANY DEREJE WRAP/SPLINTS THAT WERE APPLIED HERE, PLEASE DO NOT REMOVE THEM UNTIL YOU SEE YOUR PRIMARY CARE OR SPECIALTY. REFERRALS: Referrals: ADAN CARMEN MD (PCP) Time of Disposition: 11:00 VANI ARCHIBALD MD February 25, 2025 10:23
[2025-02-25 10:49] LABS: BASOPHILS # (AUTO) 0.03 K/uL (0.00-0.20); BASOPHILS % (AUTO) 0.3 % (0.0-5.0); EOSINOPHILS # (AUTO) 0.02 K/uL (0.00-0.70); EOSINOPHILS % (AUTO) 0.2 % (0.0-8.0); HEMATOCRIT 47.8 % (42-54); IMMATURE GRANULOCYTE ABSOLUTE 0.04 K/uL (0-1); LYMPHOCYTES # (AUTO) 2.6 K/uL (1.0-4.8); MEAN CORPUSCULAR HGB CONC 33.3 g/dL (32.0-36.0); MEAN CORPUSCULAR VOLUME 96.2 fL (79-99); MONOCYTES # (AUTO) 0.7 K/uL (0.1-1.0); MONOCYTES % (AUTO) 6.9 % (3.0-13.0); NEUTROPHILS # (AUTO) 7.1 K/uL (1.8-7.7); NEUTROPHILS % (AUTO) 67.2 % (40.0-77.0); PLATELET COUNT (AUTO) 237 K/uL (130-400); RED BLOOD CELL COUNT(AUTO) 4.97 MIL/uL (4.50-6.20); RED CELL DISTRIBUTION WIDTH 12.3 % (11.0-15.5); WHITE BLOOD COUNT (AUTO) 10.5 K/uL (4.8-10.8)
--- NOTE | 2025-02-25 10:50 | HMCIMG ---
Exam Type: US EXTREMITY NONVASCULAR LMTD Clinical Information: LEFT KNEE ABSCESS Comparison: None Findings and impression: No abscess is noted throughout the area of concern. There is evidence of subcutaneous edema.
[2025-02-25 10:56] LABS: CREATININE 0.8 mg/dL (0.5-1.3)
[2025-02-25] MEDS ORDERED: CEPH500B PO (11:00)
[2025-02-25] MEDS: teTANUS/diphthERIA TOXOID [ADULT] 0.5 ML VIAL IM ONE (11:07)
[2025-02-25 11:15] VITALS: BP 136/82; PULSE 101; RESP 18; TEMP 97.9; O2SAT 97
== END 2025-02-25 11:22 | disposition home or self-care (01) ==
LOC: EDH 10:09
DX: S80.212A Abrasion, left knee, initial encounter (principal); L03.116 Cellulitis of left lower limb; Z79.899 Other long term (current) drug therapy; X58.XXXA Exposure to other specified factors, initial encounter; Y93.89 Activity, other specified; Y92.89 Other specified places as the place of occurrence of the external cause; Y99.8 Other external cause status
CPT/HCPCS: 36415; 76882; 80048; 82948; 85025; 90471; 90714; 99285

== ENCOUNTER 2025-03-07 12:55 | Emergency (ER) | payer SELFPAY ==
[~2025-03-07] VITALS: Ht 172.7 cm; Wt 81.6 kg
[~2025-03-07 12:55] MED LIST changes: +CEPH500B PO
[2025-03-07] MEDS: LIDOCAINE HCL 2% VISCOUS 15 ML UDCUP PO ONE (13:22)
[2025-03-07] MEDS: DICYCLOMINE HCL 10 MG/5 ML ML PO ONE (13:22)
[2025-03-07] MEDS: MAG/ALUM/SIMETH 30 ML UDCUP PO ONE (13:22)
[2025-03-07] MEDS ORDERED: OMEP1CAP32 PO (14:49)
[2025-03-07] MEDS ORDERED: CHLO10TA19 PO (14:49)
--- NOTE | 2025-03-07 14:50 | ERN ---
General Chief Complaint: Other Problems Stated Complaint: HICCUPS AND HEARTBURN Time Seen by MD: 13:07 Source: patient History of Present Illness Initial Comments Patient was recently seen in an emergency room with a left knee abscess. He was given a prescription for Keflex. The minute he started taking the Keflex he has had intractable hiccups and heartburn. He said he has not been able to sleep for two days in his only been able to eat a little bit of food. He has no knee pain no fevers or chills. Timing/Duration: 24 hours Allergies: Coded Allergies: No Known Allergies (Unverified Allergy, Unknown, 05/03/19) Home Meds Active Scripts Cephalexin Monohydrate (Keflex) 500 Mg Cap, 1 CAP PO TID for 10 Days, #30 CAP 0 Refills Prov:VANI ARCHIBALD MD 02/25/25 Butalb/Acetaminophen/Caffeine (Esgic 50-325-40 mg Tablet) 50 Mg-325 Mg-40 Mg Tablet, 1 EACH PO AD for HEADACHE, #20 TAB 2 tablets by mouth every 4 hours as needed for headache, maximum 6 tablets in 24 hours. Prov:MODESTO STOUT NP 01/19/24 Sulfamethoxazole/Trimethoprim (Bactrim Ds Tablet) 1 Each Tablet, 1 TAB PO BID for 10 Days, #20 TAB Prov:ALIX BERRYP 08/17/21 Past Medical History Past Medical History: No Pertinent History Medical History Other: NOSE BLEEDS A CHILD Past Surgical History: Other Surgical History Other: RT HIP BOIL ROS Dictation Patient's review of systems is negative except for the hiccups in the heartburn. Physical Exam Extremities Comment Patient's left knee abscess has 100% healed. There is no erythema no warmth no swelling. There is new skin covering the area. MDM The patient's left knee abscesses healed. He does not need to take the antibiotics anymore. I told him to stop. I gave him a GI cocktail to quench his symptoms and it did stop his hiccups and his heartburn. Unfortunately both returned fairly quickly. I will discharge him on antacids and then also chlorpromazine. ED Course Orders Procedure Category Date Status Time Lidocaine Hcl 2% PHA 03/07/25 Complete Viscous (Lidocaine Hcl 13:30 Mag/Alum/Simeth 30ml PHA 03/07/25 Complete (Maalox Plus 30ml) 13:30 Dicyclomine Hcl PHA 03/07/25 Complete (Bentyl 10mg/5ml 13:30 Current Medications Medications (Trade) Dose Ordered Sig/Daniel Route PRN Reason Start Time Stop Time Status Last Admin Dose Admin Al Hydroxide/Mg Hydroxide (MAALox PLUS 30ML) 30 ml ONCE ONCE PO 03/07/25 13:30 03/07/25 13:31 DC 03/07/25 13:22 Dicyclomine HCl (Bentyl 10mg/5ml Syrup) 10 mg ONCE ONCE PO 03/07/25 13:30 03/07/25 13:31 DC 03/07/25 13:22 Lidocaine HCl (Lidocaine HCl 2% Viscous) 10 ml ONCE ONCE PO 03/07/25 13:30 03/07/25 13:31 DC 03/07/25 13:22 Vital Signs Date Time Temp Pulse Resp B/P (MAP) Pulse Ox O2 Delivery O2 Flow Rate FiO2 03/07/25 13:10 98.6 85 18 113/68 99 Room Air* 0 21 03/07/25 12:58 98.6 85 18 113/68 99 0 DX & DISP Disposition: Discharge Departure Impression: Primary Impression: Intractable hiccups Additional Impression: GERD (gastroesophageal reflux disease) Condition: Stable Scripts Omeprazole/Sodium Bicarbonate (Omeprazole-Bicarb 20-1,100 Cap) 20 Mg-1.1 Gram Capsule 1 CAP PO DAILY for 30 Days, #30 CAP 0 Refills Prov: JUANCARLOS MENDOZA MD 03/07/25 Chlorpromazine HCl (Chlorpromazine HCl) 10 Mg Tablet 1 TAB PO TID PRN for hiccups for 30 Days, #90 TAB 0 Refills Prov: JUANCARLOS MENDOZA MD 03/07/25 Additional Instructions: I am sending her home on a strong medicine for GERD or acid reflux. This may help with her hiccups. In addition I am giving you chlorpromazine as well to help with your hiccups. You can try breathing into a paper bag or holding your breath sipping cold water or gargling with ice water in addition to taking these medications. Please follow-up with your primary care physician. It will take a few days for the omeprazole, which is the acid reflux medicine, to work Referrals: ADAN CARMEN MD (PCP) JUANCARLOS MENDOZA MD March 07, 2025 14:50
[2025-03-07 15:00] VITALS: BP 119/62; PULSE 80; RESP 18; TEMP 98.6; O2SAT 99
== END 2025-03-07 15:02 | disposition home or self-care (01) ==
LOC: EDH 12:55
DX: R06.6 Hiccough (principal); K21.9 Gastro-esophageal reflux disease without esophagitis; Z79.899 Other long term (current) drug therapy
CPT/HCPCS: 99284

== ENCOUNTER 2025-03-07 21:24 | Emergency (ER) | payer SELFPAY ==
[~2025-03-07] VITALS: Ht 172.7 cm; Wt 81.6 kg
[~2025-03-07 21:24] MED LIST changes: +CHLO10TA19 PO; +OMEP1CAP32 PO
[2025-03-07 21:57] LABS: BASOPHILS # (AUTO) 0.05 K/uL (0.00-0.20); BASOPHILS % (AUTO) 0.3 % (0.0-5.0); EOSINOPHILS # (AUTO) 0.18 K/uL (0.00-0.70); EOSINOPHILS % (AUTO) 1.1 % (0.0-8.0); HEMATOCRIT 43.7 % (42-54); IMMATURE GRANULOCYTE ABSOLUTE 0.06 K/uL (0-1); LYMPHOCYTES # (AUTO) 2.9 K/uL (1.0-4.8); LYMPHOCYTES % (AUTO) 17.8 % (21.0-51.0); MEAN CORPUSCULAR HEMOGLOBIN 31.8 pg (27.0-33.0); MEAN CORPUSCULAR HGB CONC 34.3 g/dL (32.0-36.0); MEAN CORPUSCULAR VOLUME 92.8 fL (79-99); MONOCYTES # (AUTO) 1.2 K/uL (0.1-1.0); MONOCYTES % (AUTO) 7.3 % (3.0-13.0); NEUTROPHILS # (AUTO) 11.9 K/uL (1.8-7.7); NEUTROPHILS % (AUTO) 73.1 % (40.0-77.0); PLATELET COUNT (AUTO) 306 K/uL (130-400); RED BLOOD CELL COUNT(AUTO) 4.71 MIL/uL (4.50-6.20); RED CELL DISTRIBUTION WIDTH 11.9 % (11.0-15.5); WHITE BLOOD COUNT (AUTO) 16.3 K/uL (4.8-10.8)
[2025-03-07 22:08] LABS: CREATININE 0.7 mg/dL (0.5-1.3); POTASSIUM 4.1 mmol/L (3.5-5.1)
[2025-03-07 22:17] LABS: ALBUMIN 3.6 g/dL (3.5-5.0); BILIRUBIN,DIRECT 0.2 mg/dL (0.0-0.3); BILIRUBIN,TOTAL 1.1 mg/dL (0.2-1.0); TOTAL PROTEIN, SERUM 8.3 g/dL (6.0-8.3)
[2025-03-07] MEDS: PANTOPrazole 40 MG/VIAL IVP ONE (22:20)
--- NOTE | 2025-03-07 22:52 | HMCIMG ---
CHEST 1VW HISTORY: Chest pain COMPARISON: 12/01/1999 FINDINGS: A frontal projection of the chest was obtained. No acute pulmonary infiltrates is seen. The heart is normal in size. Prominent interstitial markings are seen. Degenerative changes are seen. IMPRESSION: 1. No acute pulmonary infiltrate is seen.
[2025-03-07 23:34] LABS: APPEARANCE,URINE CLEAR (CLEAR); BILIRUBIN,URINE NEGATIVE (NEGATIVE); COLOR,URINE LIGHT-YELLOW (YELLOW); GLUCOSE, URINE (UA) NEGATIVE (NEGATIVE); KETONES,URINE 40 mg/dL (NEGATIVE); LEUKOCYTE ESTERASE ,URINE NEGATIVE Leu/uL (NEGATIVE); NITRATE,URINE NEGATIVE (NEGATIVE); OCCULT BLOOD,URINE NEGATIVE (NEGATIVE); PROTEIN,URINE NEGATIVE (NEGATIVE); UROBILINOGEN,URINE 0.2 mg/dL (0.2-1.0)
[2025-03-07 23:36] LABS: ADD UA MICROSCOPIC YES
--- NOTE | 2025-03-07 23:39 | ERN ---
ED Note History of Present Illness Stated Complaint: HICCUPS 3 DAYS Chief Complaint: Hiccups/Singultis Time Seen by MD: 21:27 Time Seen by Midlevel: 21:27 Dictation: The patient is a 59-year-old male with no medical history who presents to the emergency department with complaints of hiccups onset four days ago. Patient reports his symptoms started after taking Keflex for a cellulitis of his left lower extremities. Patient denies any nausea, vomiting, diarrhea or constipation. Denies any fevers. Allergies: Coded Allergies: No Known Allergies (Unverified Allergy, Unknown, 05/03/19) Home Meds Active Scripts Omeprazole/Sodium Bicarbonate (Omeprazole-Bicarb 20-1,100 Cap) 20 Mg-1.1 Gram Capsule, 1 CAP PO DAILY for 30 Days, #30 CAP 0 Refills Prov:JUANCARLOS MENDOZA MD 03/07/25 Chlorpromazine HCl (Chlorpromazine HCl) 10 Mg Tablet, 1 TAB PO TID PRN for hiccups for 30 Days, #90 TAB 0 Refills Prov:JUANCARLOS MENDOZA MD 03/07/25 Cephalexin Monohydrate (Keflex) 500 Mg Cap, 1 CAP PO TID for 10 Days, #30 CAP 0 Refills Prov:VANI ARCHIBALD MD 02/25/25 Butalb/Acetaminophen/Caffeine (Esgic 50-325-40 mg Tablet) 50 Mg-325 Mg-40 Mg Tablet, 1 EACH PO AD for HEADACHE, #20 TAB 2 tablets by mouth every 4 hours as needed for headache, maximum 6 tablets in 24 hours. Prov:MODESTO STOUT HEATING SYSTEMS INSTALLER 01/19/24 Sulfamethoxazole/Trimethoprim (Bactrim Ds Tablet) 1 Each Tablet, 1 TAB PO BID for 10 Days, #20 TAB Prov:ALIX BERRYP 08/17/21 Past Medical History Past Medical History: No Pertinent History Additional Past Medical Hx: NOSE BLEEDS A CHILD Surgical History: Other Surgical History Other: RT HIP BOIL RN Note Reviewed/Agreed w/PFSH: Yes Review of System Dictation Constitutional: Negative for fever,chills, and weight loss Eyes: Negative for injury, pain,redness, and discharge ENT: Negative for injury,pain or swelling Cardiovascular: Negative for chest pain, palpitations, and edema Respiratory: Negative for shortness of breath, cough, and wheezing, Abdomen/GI: Negative for abdominal pain, nausea, vomiting, diarrhea, and constipation positive for hiccups Back: Negative for injury and pain : Negative for injury, bleeding and discharge MS/Extremity: Negative for injury and deformity Skin: Negative for rash, and discoloration Neuro: Negative for headache, weakness, numbness, tingling, and seizure Psych: Negative for suicide ideation, homicidal ideation, and hallucinations Initial Vital Sign VS Vital Signs Date Time Temp Pulse Resp B/P (MAP) Pulse Ox O2 Delivery O2 Flow Rate FiO2 03/07/25 21:25 98.6 92 18 129/79 99 Room Air 03/07/25 22:34 0 21 Physical Exam Dictation Vital Signs reviewed General Appearance: Alert, oriented x 3, no acute distress, well developed, nourished. Head and Face: non-traumatic. Eyes: PERRL, pink conjunctivas, eyelid no trauma, anterior chamber with arcus senilis. Ears: Pinnas intact and no signs of trauma or erythema ear canals clear and no discharge TM no erythema Nose: No discharge, no bleeding. Oropharynx: Mouth normal, tongue pink. pharynx clear,no erythema, tonsils no exudates, no abscesses noted, mucous membrane moist Neck: Supple, non-tender, no thyromegaly, no masses, no JVD, no bruits Breast:Deferred Chest:No tenderness, no crepitus, no paradoxical movement, no retractions Lungs:Clear, well-ventilated, symmetric, no rales, no wheezing, no rhonchi, no stridor, good breath sounds bilaterally Heart: Regular rate, regular rhythm, no murmur, no gallops Vascular: no peripheral edema, Abdomen: Soft, positive bowel sounds, nondistended, no guarding, nontender, no rebound, no masses no hepatomegaly, no splenomegaly, no Cabral's sign, no hernias. Rectal: Deferred Genital: Deferred Neurological: Normal speech, motor function intact, sensory function intact Musculoskeletal: Neck nontender, full range of motion, back nontender, full range of motion, Extremities: nontender, full range of motion Skin: Color pink, dry, no turgor, no rash, no lacerations, no abrasions, no contusions. Lymphatic: Deferred Results (Laboratory/Radiology) Laboratory/Radiology Laboratory Tests Test 03/07/25 21:44 03/07/25 23:21 White Blood Count 16.3 K/uL (4.8-10.8) H Red Blood Count 4.71 MIL/uL (4.50-6.20) Hemoglobin 15.0 g/dL (14.0-18.0) Hematocrit 43.7 % (42-54) Mean Corpuscular Volume 92.8 fL (79-99) Mean Corpuscular Hemoglobin 31.8 pg (27.0-33.0) Mean Corpuscular Hemoglobin Concent 34.3 g/dL (32.0-36.0) Red Cell Distribution Width 11.9 % (11.0-15.5) Platelet Count 306 K/uL (130-400) Mean Platelet Volume 9.3 fL (7.5-10.5) Immature Granulocyte % (Auto) 0.4 % (0-1) Neutrophils (%) (Auto) 73.1 % (40.0-77.0) Lymphocytes (%) (Auto) 17.8 % (21.0-51.0) L Monocytes (%) (Auto) 7.3 % (3.0-13.0) Eosinophils (%) (Auto) 1.1 % (0.0-8.0) Basophils (%) (Auto) 0.3 % (0.0-5.0) Neutrophils # (Auto) 11.9 K/uL (1.8-7.7) H Lymphocytes # (Auto) 2.9 K/uL (1.0-4.8) Monocytes # (Auto) 1.2 K/uL (0.1-1.0) H Eosinophils # (Auto) 0.18 K/uL (0.00-0.70) Basophils # (Auto) 0.05 K/uL (0.00-0.20) Absolute Immature Granulocyte (auto 0.06 K/uL (0-1) Nucleated Red Blood Cells 0.0 % (0.0-0.19) Sodium Level 137 mmol/L (136-145) Potassium Level 4.1 mmol/L (3.5-5.1) Chloride Level 100 mmol/L (101-111) L Carbon Dioxide Level 27 mmol/L (21-32) Blood Urea Nitrogen 15 mg/dL (7-18) Creatinine 0.7 mg/dL (0.5-1.3) Glomerular Filtration Rate Calc 107 mL/min (>90) Random Glucose 121 mg/dL (70-105) H Total Calcium 9.3 mg/dL (8.5-10.1) Total Bilirubin 1.1 mg/dL (0.2-1.0) H Direct Bilirubin 0.2 mg/dL (0.0-0.3) Aspartate Amino Transf (AST/SGOT) 22 U/L (10-37) Alanine Aminotransferase (ALT/SGPT) 17 U/L (12-78) Alkaline Phosphatase 70 U/L (50-136) Total Creatine Kinase 177 U/L (21-232) # Troponin I High Sensitivity < 4 ng/L (4-75) L Total Protein 8.3 g/dL (6.0-8.3) Albumin 3.6 g/dL (3.5-5.0) Lipase 30 U/L (16-77) Urine Color LIGHT-YELLOW (YELLOW) Urine Appearance CLEAR (CLEAR) Urine pH 6.0 (5.0-8.0) Urine Specific [place] 1.010 (1.001-1.031) Urine Protein NEGATIVE mg/dL (NEGATIVE) Urine Glucose (UA) NEGATIVE mg/dL (NEGATIVE) Urine Ketones 40 mg/dL (NEGATIVE) H Urine Occult Blood NEGATIVE (NEGATIVE) Urine Nitrate NEGATIVE (NEGATIVE) Urine Bilirubin NEGATIVE mg/dL (NEGATIVE) Urine Urobilinogen 0.2 mg/dL (0.2-1.0) Urine Leukocyte Esterase NEGATIVE Cirilo/uL Urine RBC 0-1 /HPF (0-1) Urine WBC 0-1 /HPF (0-1) Urine Bacteria None /HPF (None Seen) Urine Opiates Screen NEGATIVE (NEGATIVE) Urine Barbiturates Screen NEGATIVE (NEGATIVE) Urine Phencyclidine Screen NEGATIVE (NEGATIVE) Urine Amphetamines Screen NEGATIVE (NEGATIVE) Urine Benzodiazepines Screen NEGATIVE (NEGATIVE) Urine Cocaine Screen NEGATIVE (NEGATIVE) Urine Marijuana (THC) Screen NEGATIVE (NEGATIVE) REASON: cp ORDERING PHYSICIAN: TAD CHENG PROCEDURE: CXR1VW - CHEST 1VW CHEST 1VW HISTORY: Chest pain COMPARISON: 12/01/1999 FINDINGS: A frontal projection of the chest was obtained. No acute pulmonary infiltrates is seen. The heart is normal in size. Prominent interstitial markings are seen. Degenerative changes are seen. IMPRESSION: 1. No acute pulmonary infiltrate is seen. Labs Reviewed?: Yes EKG: (+) rhythm (Sinus rhythm) EKG Comment: Date:03/07/2025 Time:2155 Ventricular rate:84 NE interval:140 QRS duration:103 QT/QTc:377 EKG interpretation: Sinus rhythm Reviewed by ED Attending no STEMI ED Course ED Course Orders Procedure Category Date Status Time Cbc With Differential LAB 03/07/25 Complete 21:36 Troponin I High LAB 03/07/25 Complete Sensitivity 21:36 Urinalysis Profile LAB 03/07/25 Complete 21:36 12 Lead Ekg Tracing- EKG 03/07/25 Logged Technical 21:36 Pantoprazole 40mg Inj PHA 03/07/25 Complete (Protonix 40mg Inj 22:00 Creatine Kinase, Total LAB 03/07/25 Complete 21:36 Chest 1vw RAD 03/07/25 Resulted 21:36 Lipase LAB 03/07/25 Complete 21:36 Basic Metabolic Panel LAB 03/07/25 Complete 21:36 Hepatic Function Panel LAB 03/07/25 Complete 21:36 Drug Screen Urine LAB 03/07/25 Complete 21:36 Chlorpromazine Hcl PHA 03/07/25 Complete (Thorazine 25 Mg/Ml 1 22:00 Current Medications Medications (Trade) Dose Ordered Sig/Daniel Route PRN Reason Start Time Stop Time Status Last Admin Dose Admin Chlorpromazine HCl (ThorAZINE 25 MG/ ML 1ML AMP) 25 mg ONCE IM 03/07/25 22:00 03/07/25 23:01 DC 03/07/25 22:20 Pantoprazole Sodium (PROTonix 40MG INJ) 40 mg ONCE ONCE IVP 03/07/25 22:00 03/07/25 22:01 DC 03/07/25 22:20 Vital Signs Date Time Temp Pulse Resp B/P (MAP) Pulse Ox O2 Delivery O2 Flow Rate FiO2 03/07/25 23:50 98.2 82 16 99/64 97 Room Air* 0 03/07/25 22:34 98.2 87 18 103/63 98 Room Air* 0 21 03/07/25 21:25 98.6 92 18 129/79 99 Room Air Medical Decision Making MDM The patient is a 59-year-old male with no medical history who presents to the emergency department with complaints of hiccups onset four days ago. Patient reports his symptoms started after taking Keflex for a cellulitis of his left l ower extremities. Patient denies any nausea, vomiting, diarrhea or constipation. Denies any fevers. CBC showed mild leukocytosis, could be related to recent cellulitis. no anemia, chemistry showed mild hypochloremia, normal renal function, negative lipase, negative troponin, chest x-ray unremarkable.urinalysis unremarkable. Patient hiccups have resolved with medication. Patient with no fevers, nontender abdomen to palpation, patient in no acute distress, nontoxic appearance we will be discharged and follow up with PCP. Differential diagnosis: Gastritis, ACS, dehydration, electrolyte imbalance Need for hospitalization: Patient does not meet criteria for hospitalization. There are no social concerns with this patient. DX & DISP Disposition: Discharge Departure Impression: Primary Impression: Hiccups Condition: Stable Additional Instructions: Please diamond picker the prescriptions that were sent to your pharmacy. Please follow up with your primary doctor in 1-2 days. Avoid any foods that exacerbate your symptoms. If symptoms worsen please return to ER. FOLLOW-UP WITH PRIMARY CARE PROVIDER IN 1 TO 2 DAYS. TAKE MEDICATIONS DIRECTED HERE IN THE EMERGENCY ROOM. OKAY TO CONTINUE HOME MEDICATIONS UNLESS OTHERWISE DISCUSSED DURING YOUR VISIT IN THE EMERGENCY ROOM TODAY. RETURN TO YOUR NEAREST EMERGENCY ROOM IF SYMPTOMS WORSEN OR IF THERE IS NO IMPROVEMENT. CALL 911 IF YOU NEED IMMEDIATE ASSISTANCE. TAKE TYLENOL OR MOTRIN [id number] NEEDED AND IF NO CONTRAINDICATIONS ARE PRESENT. INCREASE ORAL HYDRATION. A WOUND CULTURE OR URINE CULTURE WAS ORDERED HERE IN THE EMERGENCY ROOM DEPARTMENT PLEASE FOLLOW-UP WITH PRIMARY CARE PROVIDER AND ADVISE THEM TO GET REPEAT PORTS FROM OUR FACILITY. IF YOU HAD ANY DEREJE WRAP/SPLINTS THAT WERE APPLIED HERE, PLEASE DO NOT REMOVE THEM UNTIL YOU SEE YOUR PRIMARY CARE OR SPECIALTY. Referrals: ADAN CARMEN MD (PCP) Time of Disposition: 23:51 I have reviewed the case, and I agree with, Diagnosis and Plan TAD CHENG March 07, 2025 23:38 ANTONIO FLOYD DO March 08, 2025 03:36
[2025-03-07 23:41] LABS: AMPHET/METH SCREEN,URINE NEGATIVE (NEGATIVE); BARBITURATE SCREEN, URINE NEGATIVE (NEGATIVE); BENZODIAZEPINES SCREEN,URINE NEGATIVE (NEGATIVE); CANNABINOID SCREEN,URINE NEGATIVE (NEGATIVE); COCAINE SCREEN,URINE NEGATIVE (NEGATIVE); OPIATE SCREEN,URINE NEGATIVE (NEGATIVE); PHENCYCLIDINE SCREEN,URINE NEGATIVE (NEGATIVE)
[2025-03-07 23:42] LABS: RBC,URINE 0-1 /HPF (0-1); WBC,URINE 0-1 /HPF (0-1)
[2025-03-07 23:50] VITALS: BP 99/64; PULSE 82; RESP 16; TEMP 98.3; O2SAT 97
--- NOTE | 2025-03-08 06:30 | EKG ---
[facility] Test Date: 2025-03-07 Test Time: 21:56:49 Pat Name: JULIET TRINIDAD Department: [facility] Room: Gender: M Day Porter: [id number] : 1966-01-15 Requested By: TAD CHENG Order Number: [id number] Reading MD: Lamin Corbin Measurements Intervals [place] Rate: 84 P: 55 NV: 140 QRS: -60 QRSD: 103 T: 26 QT: 377 QTc: 447 Interpretive Statements Sinus rhythm LAD, consider left anterior fascicular block Compared to ECG 08/13/2021 00:49:45 No significant changes Electronically Signed On 03-11-2025 22:11:01 CDT by Lamin Corbin Please click the below link to view image of tracing.
== END 2025-03-08 00:08 | disposition home or self-care (01) ==
LOC: EDH 21:24
DX: R06.6 Hiccough (principal)
CPT/HCPCS: 99285; 96374; 71045; 82550; 80076; 84484; 80048; 80305; 83690; 85025; 36415; 93005; 96372; 81001; J3230; J2470